=== PATIENT | female | born 1945 | race Caucasian/White ===

== ENCOUNTER 2017-06-16 19:16 | Observation (INO) | payer BC, MEDICARE ==
[2017-06-16 19:59] LABS: #Basophils 0.1 thou/uL (0.0-0.2); #Eosinphils 0.3 thou/uL (0.0-0.7); #Lymphocytes 3.1 thou/uL (1.20-3.40); #Monocytes 0.7 thou/uL (0.11-0.59); #Neutrophils 4.6 thou/uL (1.40-6.50); %Basophils 1.1 % (0.0-1.0); %Eosinophils 3.4 % (0.0-10.0); %Lymphocytes 35.2 % (21.0-51.0); %Monocytes 7.9 % (0.0-10.0); Hematocrit 45.8 % (36.0-47.0); Mean Platelet Volume 7.7 fL (7.4-10.4); Red Blood Cell (RBC) Count 4.58 mill/uL (4.20-5.40); White Blood Cell (WBC) Count 8.8 thou/uL (4.8-10.8)
[2017-06-16] MEDS ORDERED: Aspirin 325 MG TAB ONE (20:04)
[2017-06-16 20:06] LABS: Prothrombin Time 13.9 SEC (12.0-14.7)
[2017-06-16 20:07] LABS: PTT 30.3 SEC (22.9-36.1)
[2017-06-16 20:23] LABS: Troponin I Less than 0.010 ng/mL (< 0.028)
[2017-06-16 20:26] LABS: ALT (SGPT) 14 U/L (8-55); AST (SGOT) 17 U/L (5-34); Alkaline Phosphatase 113 U/L (40-150); Anion Gap 12 mmol/L (10-20); BUN (Urea Nitrogen) 20 mg/dL (9.8-20.1); Bilirubin, Total 0.7 mg/dL (0.2-1.2); CK (CPK) 48 U/L (29-168); Calc. Creatinine Clearance 0 mL/min (70-130); Calcium 9.7 mg/dL (7.8-10.44); Carbon Dioxide 28 mmol/L (23-31); Chloride 105 mmol/L (98-107); Estimated GFR-MDRD 58; Globulin 2.9 g/dL (2.4-3.5); Lipase 70 U/L (8-78); Protein, Total 7.5 g/dL (6.0-8.3)
--- NOTE | 2017-06-16 20:38 | RAD ---
SINGLE VIEW OF THE CHEST: 06/16/17 COMPARISON: None. HISTORY: Chest pain. FINDINGS: Single view of the chest shows a normal sized cardiomediastinal silhouette. There is no evidence of consolidation, mass, or pleural effusion. The bones are unremarkable. IMPRESSION: No evidence of acute cardiopulmonary disease. POS: [facility]
[2017-06-16] MEDS ORDERED: Acetaminophen 325 MG TAB PO PRN (22:12)
[2017-06-16] MEDS ORDERED: Nitroglycerin 0.4 MG TAB (25 Tab Bottle) PO PRN (22:12)
[2017-06-16] MEDS ORDERED: Guaifenesin DM 100-10/5 ML UDCUP PO PRN (22:12)
[2017-06-16] MEDS ORDERED: Aspirin 325 MG TAB PO SCH (22:30)
[2017-06-16 23:10] VITALS: BMI 24.1
[2017-06-16 23:26] LABS: Troponin I Less than 0.010 ng/mL (< 0.028)
[2017-06-17] MEDS ORDERED: Regadenoson 0.4 MG/5 ML SYRINGE ONE ×2 (00:56→16:56)
[2017-06-17 01:54] LABS: #Basophils 0.1 thou/uL (0.0-0.2); #Eosinphils 0.3 thou/uL (0.0-0.7); #Lymphocytes 2.9 thou/uL (1.20-3.40); #Monocytes 0.8 thou/uL (0.11-0.59); %Basophils 1.2 % (0.0-1.0); %Eosinophils 3.7 % (0.0-10.0); %Lymphocytes 31.5 % (21.0-51.0); %Monocytes 8.7 % (0.0-10.0); Hematocrit 40.1 % (36.0-47.0); Mean Platelet Volume 7.4 fL (7.4-10.4); Red Blood Cell (RBC) Count 4.02 mill/uL (4.20-5.40); White Blood Cell (WBC) Count 9.2 thou/uL (4.8-10.8)
[2017-06-17 02:19] LABS: Troponin I Less than 0.010 ng/mL (< 0.028)
[2017-06-17 02:31] LABS: Anion Gap 11 mmol/L (10-20); BUN (Urea Nitrogen) 18 mg/dL (9.8-20.1); Calc. Creatinine Clearance 74 mL/min (70-130); Calcium 9.4 mg/dL (7.8-10.44); Carbon Dioxide 26 mmol/L (23-31); Chloride 110 mmol/L (98-107); Cholesterol 139 mg/dl (< 200 Desired); Estimated GFR-MDRD 73; LDL Cholesterol, Calculated 81 mg/dL
--- NOTE | 2017-06-17 02:38 | HP ---
REASON FOR ADMISSION: Atypical chest pain. HISTORY OF PRESENT ILLNESS: The patient gives a history of having right shoulder pain with tingling and numbness in the right hand. This happened around 6:30 p.m. The pain was very sharp in nature, lasted for nearly 4 hours until she came to the ER. No left-sided chest pain, palpitations, PND, or orthopnea. No complaints of fever. No complaints of shortness of breath or exertional pain. This pain is worse on deep breathing. No recent history of viral infection including runny nose or myalgias. She finally called her daughter who asked her to come to the emergency room. No recent trauma to head or neck area or falls. PAST MEDICAL AND SURGICAL HISTORY: Hysterectomy, tonsillectomy, hemorrhoidectomy, no medical issues as such per patient. CURRENT MEDICATIONS: None. ALLERGIES: No known drug allergies. PERSONAL HISTORY: Does not abuse alcohol or drugs. Does not smoke now, quit smoking when she was 47 years old. She smoked for nearly 15 years, well half pack a day. This was prior to her quitting. FAMILY HISTORY: She does not know much about her father. Mother is alive and has mild hypertension. REVIEW OF SYSTEMS: The following complete review of systems was negative, unless otherwise mentioned in the HPI or below: Constitutional: Weight loss or gain, ability to conduct usual activities. Skin: Rash, itching. Eyes: Double vision, pain. ENT/Mouth: Nose bleeding, neck stiffness, pain, tenderness. Cardiovascular: Palpitations, dyspnea on exertion, orthopnea. Respiratory: Shortness of breath, wheezing, cough, hemoptysis, fever or night sweats. Gastrointestinal: Poor appetite, abdominal pain, heartburn, nausea, vomiting, constipation, or diarrhea. Genitourinary: Urgency, frequency, dysuria, nocturia. Musculoskeletal: Pain, swelling. Neurologic/Psychiatric: Anxiety, depression. Allergy/Immunologic: Skin rash, bleeding tendency. PHYSICAL EXAMINATION: GENERAL: The patient is a 71-year-old female who is currently not in any acute distress. VITAL SIGNS: Blood pressure 136/84, pulse 76 per minute, respiratory rate is 18 per minute, temperature 97.9 degrees Fahrenheit, saturating 97% on room air. NECK: Supple, no elevated JVD. HEENT: Extraocular muscles intact. Pupils reacting to light. Oral cavity, mucous membranes are moist. No exudates or congestion. CARDIOVASCULAR SYSTEM: S1, S2 heard. Regular rhythm. RESPIRATORY SYSTEM: Air entry 2+ bilateral. No rales. Mild rhonchi heard. ABDOMEN: Soft, bowel sounds heard. No tenderness, rigidity or guarding. EXTREMITIES: No peripheral edema or calf tenderness. VASCULAR SYSTEM: Peripheral pulses 2+ bilateral, no ischemic ulcerations or gangrene. CENTRAL NERVOUS SYSTEM: No gross focal deficits seen. Patient is alert, awake , oriented x3. PSYCHIATRIC SYSTEM: The patient's mood is euthymic. No hallucinations or delusions. LABORATORY AND X-RAY FINDINGS: EKG done shows sinus rhythm at 75 beats per minute. There is nonspecific ST-T wave changes. Chest x-ray done shows no acute cardiopulmonary abnormalities, troponin x2 is negative. CK-MB 0.8. BNP 63, lipase is 70. Electrolytes are stable. BUN 20, creatinine 0.9. Liver enzymes within normal limits. MCV is 99, H\T\H 14 and 45, platelet count 268, white count of 8.8 with 52% neutrophils. PT, INR, PTT within normal limits. CLINICAL IMPRESSION AND PLAN: The patient will be under observation for atypical chest pain. We will obtain one more set of cardiac enzymes and a nuclear stress test. The patient has never had prior stress test. She has nonspecific ST-T wave changes on the EKG. Her pain appears to be related to right shoulder joint or C-spine which has completely resolved at present. Patient's MCV is high and we will obtain B12 and folic acid levels as well. The patient appears to have COPD changes and we will place her on DuoNebs q.6 hourly until tomorrow. Please note I have seen and examined the patient [facility] . [facility]
[2017-06-17] MEDS: Famotidine 20 MG TAB PO SCH ×2 (08:42→20:30)
[2017-06-17] MEDS: Aspirin 325 MG TAB PO SCH (08:42)
[2017-06-17] MEDS: Enoxaparin Sodium 40 MG/0.4 ML SYRINGE SC SCH (12:45)
--- NOTE | 2017-06-17 15:15 | PDOC.PN ---
- Subjective Encounter Start Date: 06/17/17 Encounter Start Time: 09:00 Pt seen and exmained on round unique. Chart reviewed in its entrety. This is my first visit with this pATIENT no CP, no SOB. reviewed the history with the pt. stated off as right arm numbess, then pressue to righ shoulder, worse with deep inspiration. No N/V/D/C, no F/C, no cough, or sputum production Past history of tobacco abuse, wuit about 25 years ago after 20 years of 1ppd. did smoke for about a year a few years ago. 10 point ROS performed and neg x as per HPI Pt was scheduled for Nuclear stress test today, is NPO for the same - Objective Resuscitation Status: Full Code MAR Reviewed: Yes Vital Signs & Weight: Vital Signs (12 hours) Temp Pulse Resp BP Pulse Ox 06/17/17 12:07 97.7 F 66 18 110/62 93 L 06/17/17 07:51 97.8 F 69 14 118/70 95 06/17/17 07:50 97.8 F 69 14 06/17/17 07:10 72 16 98 06/17/17 04:20 97.8 F 61 18 108/56 L 94 L Weight Weight 154 lb Result Diagrams: 06/17/17 01:43 06/17/17 01:43 Radiology Reviewed by me: Yes EKG Reviewed by me: Yes Phys Exam - Physical Examination Constitutional: NAD HEENT: PERRLA, moist MMs, sclera anicteric, oral pharynx no lesions Neck: no nodes, no JVD, supple, full ROM Respiratory: no wheezing, no rales, no rhonchi, clear to auscultation bilateral Cardiovascular: RRR, no significant murmur, no rub Gastrointestinal: soft, non-tender, no distention, positive bowel sounds Musculoskeletal: no edema, pulses present Neurological: non-focal, normal sensation, moves all 4 limbs Lymphatic: no nodes Psychiatric: normal affect, A&O x 3 Skin: no rash, normal turgor, cap refill <2 seconds Dx/Plan (1) Chest pain, atypical Code(s): R07.89 - OTHER CHEST PAIN Status: Acute Comment: atypical. followup on stress. If neg, will discharge with outpatient followup with PCP. If abnormal, will ask cardiology to opine. Denies prior cardiac history (2) Past use of tobacco Code(s): Z87.891 - PERSONAL HISTORY OF NICOTINE DEPENDENCE Status: Acute Comment: quit 25 years ago - Plan cont current plan of care * .
[2017-06-18 04:35] VITALS: TEMP 97.8
[2017-06-18 08:08] VITALS: BP 121/80
[2017-06-18] MEDS: Aspirin 325 MG TAB PO SCH (10:31)
[2017-06-18] MEDS: Famotidine 20 MG TAB PO SCH (10:31)
[2017-06-18] MEDS: Enoxaparin Sodium 40 MG/0.4 ML SYRINGE SC SCH (10:31)
--- NOTE | 2017-06-18 11:12 | NM ---
CARDIAC SPECT: CLINICAL HISTORY: 71-year-old female with chest pain. TECHNIQUE: A myocardial perfusion scan was performed using the single isotope one day protocol with technetium- 99m sestamibi. 10 mCi were injected intravenously for the rest exam followed by 31 mCi for the stres s exam. Pharmacologic stress with Lexiscan was monitored and interpreted by Dr. Sellers. FINDINGS: Homogeneous tracer distribution is seen in the myocardial segments on stress and rest images without reversible or fixed defects. GATED SPECT LVEF: 88%. WALL MOTION EXAM: Normal. IMPRESSION: Normal myocardial perfusion scan. POS: [facility]
--- NOTE | 2017-06-18 13:18 | PDOC.PN ---
- Subjective Encounter Start Date: 06/18/17 Encounter Start Time: 13:00 No complaint. - Objective Vital Signs & Weight: Vital Signs (12 hours) Temp Pulse Resp BP Pulse Ox 06/18/17 08:00 97.8 F 80 18 06/18/17 07:52 97.8 F 74 16 121/80 94 L 06/18/17 03:45 97.8 F 80 18 103/57 L 95 Weight Weight 155 lb 1.6 oz I&O: 06/17/17 06/18/17 06/19/17 06:59 06:59 06:59 Intake Total 400 Balance 400 Result Diagrams: 06/17/17 01:43 06/17/17 01:43 Phys Exam - Physical Examination HEENT: sclera anicteric Neck: no JVD Respiratory: no rales Cardiovascular: RRR Gastrointestinal: soft, non-tender Musculoskeletal: edema present Neurological: moves all 4 limbs Psychiatric: A&O x 3 Dx/Plan (1) Chest pain, atypical Code(s): R07.89 - OTHER CHEST PAIN Status: Resolved Comment: Stress test NL. f/u echo. Home if echo NL. - Plan * .
--- NOTE | 2017-06-18 21:43 | DIS ---
DATE OF ADMISSION: 06/16/2017 DATE OF DISCHARGE: 06/18/2017 ADMITTING DIAGNOSIS: Chest pain. DISCHARGE DIAGNOSIS: Atypical chest pain. [place]: None. PROCEDURES: Stress test and echocardiogram. The patient had a chest x-ray done in the hospital. COURSE OF HOSPITALIZATION: Uncomplicated, responded well to management. The patient is clinically stable at this time, being discharged home. DISCHARGE MEDICATIONS: Please see discharge medication reconciliation sheet. PHYSICAL EXAMINATION: For today's physical examination, please refer to the patient's medical recor d progress note section. FOLLOWUP: The patient is to follow up with her primary care physician.
== END 2017-06-18 16:00 | disposition home or self-care (01) ==
LOC: ERS 19:16 → 2SW 23:00
PROVIDERS: ADMIT Internal Medicine; ATTEND Internal Medicine
DX: R07.89 Other chest pain (principal); Z90.89 Acquired absence of other organs; Z90.710 Acquired absence of both cervix and uterus; Z87.891 Personal history of nicotine dependence; Z82.49 Family history of ischemic heart disease and other diseases of the circulatory system
CPT/HCPCS: 36415; 71010; 78452; 80048; 80053; 80061; 82553; 82607; 82746; 83690; 83880; 84484; 85025; 85379; 85610; 85730; 93005; 93017; 93306; 94640; 94760; A9500; G0378; J1650; J2785; J7620

== ENCOUNTER 2017-07-22 15:27 | Outpatient (CLI) | payer BC ==
--- NOTE | 2017-07-22 16:16 | MMO ---
BILATERAL DIGITAL SCREENING MAMMOGRAMS: Date: 07/22/17 This patient's mammogram was interpreted with the assistance of computer-aided detection. Comparison made with exams of 08/12/15 and 08/03/14. FINDINGS: There are scattered fibroglandular densities with benign calcifications. Nodularity is stable. No alexis spicious masses, calcifications, or architectural distortion are seen. IMPRESSION: BIRADS 2: Benign Finding(s) Annual screening mammography is recommended. POS: [facility]
== END 2017-07-22 15:28 | disposition home or self-care (01) ==
LOC: SCSMAMMO 15:27
PROVIDERS: ATTEND Family Medicine
DX: Z12.31 Encounter for screening mammogram for malignant neoplasm of breast (principal)
CPT/HCPCS: 77067; G0202

== ENCOUNTER 2018-09-07 13:48 | Outpatient (CLI) | payer MEDICARE, BC ==
--- NOTE | 2018-09-07 15:02 | MMO ---
BILATERAL MAMMOGRAMS: History: Screening mammography. Comparison: Multiple exams back to 07-22-11. FINDINGS: Heterogeneously dense fibroglandular tissue and benign appearing calcifications. Focal lobular nodule within the mid slightly medial aspect left breast is stable. No new dominant mass or suspicious calc ifications. This study is interpreted with the assistance of computer aided detection. IMPRESSION: BIRADS 2 - benign findings. Suggest routine follow up. POS: [facility]
== END 2018-09-07 13:49 | disposition home or self-care (01) ==
LOC: SCSMAMMO 13:48
PROVIDERS: ATTEND Family Medicine
DX: Z12.31 Encounter for screening mammogram for malignant neoplasm of breast (principal)
CPT/HCPCS: 77067

== ENCOUNTER 2020-07-09 08:28 | Outpatient (CLI) | payer MEDICARE, BC ==
--- NOTE | 2020-07-09 08:54 | MMO ---
Bilateral MAMMO Bilat Screen [facility]. CLINICAL HISTORY: Patient is 74 years old and is seen for screening. The patient has no family history of breast cancer. The patient has no personal history of cancer. VIEWS: The views performed were: bilateral craniocaudal with tomosynthesis and bilateral mediolateral oblique with tomosynthesis. FILMS COMPARED: The present examination has been compared to prior imaging studies performed at [facility] on 08/03/2014, 08/12/2015, 07/22/2017 and 09/07/2018. This study has been interpreted with the assistance of computer-aided detection. MAMMOGRAM FINDINGS: There are scattered fibroglandular densities. There are no suspicious masses, suspicious calcifications, or new areas of architectural distortion. IMPRESSION: THERE IS NO MAMMOGRAPHIC EVIDENCE OF MALIGNANCY. A ROUTINE FOLLOW-UP MAMMOGRAM IN 1 YEAR IS RECOMMENDED. THE RESULTS OF THIS EXAM WERE SENT TO THE PATIENT. ACR BI-RADS Category 1 - Negative MAMMOGRAPHY NOTE: 1. A negative mammogram report should not delay a biopsy if a dominant of clinically suspicious mass is present. 2. Approximately 10% to 15% of breast cancers are not detected by mammography. 3. Adenosis and dense breasts may obscure an underlying neoplasm. Reported by: Aaron PATEL Electonically Signed: [id number]
== END 2020-07-09 08:29 | disposition home or self-care (01) ==
LOC: BICMAMMO 08:28
PROVIDERS: ATTEND Family Medicine
DX: Z12.31 Encounter for screening mammogram for malignant neoplasm of breast (principal)
CPT/HCPCS: 77063; 77067

== ENCOUNTER 2022-07-09 08:45 | Outpatient (CLI) | payer MEDICARE, BC | END 2022-07-09 08:46 | disposition home or self-care (01) | LOC: PET 08:45 | PROVIDERS: ATTEND Anesthesiology Pain Medicine | DX: C21.8 Malignant neoplasm of overlapping sites of rectum, anus and anal canal (principal); C44.520 Squamous cell carcinoma of anal skin; Z21 Asymptomatic human immunodeficiency virus [HIV] infection status | CPT/HCPCS: 78815; A9552 ==